=== PATIENT | female | born 2000 | race African-American/Black ===

== ENCOUNTER 2018-08-29 14:59 | Emergency (ER) | payer OTHER ==
[2018-08-29 15:07] VITALS: BP 138/94
[2018-08-29] MEDS ORDERED: BACITRACIN OINT TOP STA (15:23)
[2018-08-29] MEDS ORDERED: HYDROcod/ACETAM 5/325 MG TABLET PO STA (15:23)
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
== END 2018-08-29 15:34 | disposition home or self-care (01) ==
LOC: ED 14:59
DX: T23.252A Burn of second degree of left palm, initial encounter (principal); T31.0 Burns involving less than 10% of body surface; W22.09XA Striking against other stationary object, initial encounter; Y93.B2 Activity, push-ups, pull-ups, sit-ups; L84 Corns and callosities
CPT/HCPCS: 99283; A9270